=== PATIENT | male | born 1935 | race Caucasian/White ===

== ENCOUNTER → 2017-11-16 | Outpatient (CLI) | payer MEDICARE ==
--- NOTE | 2017-11-17 12:02 | ECHOF ---
Referral Reason:R01.1 Cardiac murmur MEASUREMENTS -------- HEIGHT: 170.2 cm WEIGHT: 81.6 kg BP: 151/73 RVIDd: 2.9 cm (< 3.3) IVSd: 1.4 cm (0.6 - 1.1) LVIDd: 4.3 cm (3.9 - 5.3) LVPWd: 1.4 cm (0.6 - 1.1) IVSs: 1.8 cm LVIDs: 3.0 cm LVPWs: 2.1 cm LA Diam: 4.0 cm (2.7 - 3.8) LAESV Index (A-L): 23.28 ml/m Ao Diam: 4.1 cm (2.0 - 3.7) AV Cusp: 2.1 cm (1.5 - 2.6) EPSS: 0.8 cm MV E Arias: 0.67 m/s MV DecT: 248 ms MV A Arias: 1.16 m/s MV E/A Ratio: 0.58 AV maxP.15 mmHg AV meanP.16 mmHg RAP: 5.00 mmHg RVSP: 19.96 mmHg MV EF SLOPE: 34.96 mm/s (70 - 150) MV EXCURSION: 1.59 cm (> 18.000) FINDINGS -------- Sinus rhythm. This was a technically good study. The left ventricular size is normal. There is moderate concentric left ventricular hypertrophy. O verall left ventricular systolic function is normal with, an EF between 60 - 65 %. The right ventricle is normal in size. Normal LA size by volume 22+/-6 ml/m2. The right atrium is normal in size. There is mild aortic valve sclerosis. There is mild aortic stenosis present. Peak/mean gradient a cross the Aortic Valve is 16.15mmHg / 8.16mmHg. The mitral valve leaflets are mildly thickened. Mild mitral annular calcification present. There is trace to mild mitral regurgitation. Mild tricuspid regurgitation present. Right ventricular systolic pressure is normal at < 35 mmHg. Trace/mild (physiologic) pulmonic regurgitation. The aortic root is dilated measuring 4.1cm. Normal inferior vena cava with normal inspiratory collapse consistent with estimated right atrial pre ssure of 5 mmHg. There is no pericardial effusion. CONCLUSIONS -------- 1. Sinus rhythm. 2. This was a technically good study. 3. The left ventricular size is normal. 4. There is moderate concentric left ventricular hypertrophy. 5. Overall left ventricular systolic function is normal with, an EF between 60 - 65 %. 6. The right ventricle is normal in size. 7. Normal LA size by volume 22+/-6 ml/m2. 8. The right atrium is normal in size. 9. There is mild aortic valve sclerosis. 10. There is mild aortic stenosis present. 11. Peak/mean gradient across the Aortic Valve is 16.15mmHg / 8.16mmHg. 12. The mitral valve leaflets are mildly thickened. 13. Mild mitral annular calcification present. 14. There is trace to mild mitral regurgitation. 15. Mild tricuspid regurgitation present. 16. Right ventricular systolic pressure is normal at < 35 mmHg. 17. Trace/mild (physiologic) pulmonic regurgitation. 18. The aortic root is dilated measuring 4.1cm. 19. Normal inferior vena cava with normal inspiratory collapse consistent with estimated right atrial pressure of 5 mmHg. 20. There is no pericardial effusion. BRAZING MACHINE TENDER: VICKI Cedeno
== END | disposition home or self-care (01) ==
LOC: RADECHMAIN 12:20
PROVIDERS: ATTEND Family Medicine
DX: I08.1 Rheumatic disorders of both mitral and tricuspid valves (principal); I77.819 Aortic ectasia, unspecified site
CPT/HCPCS: 93306

== ENCOUNTER → 2018-03-04 | Outpatient (CLI) | payer MEDICARE ==
[2018-03-04 08:57] LABS: ALT 73 U/L (21-72); AST 86 U/L (17-59); Albumin 4.1 g/dL (3.5-5.0); Alkaline Phosphatase 309 U/L (38-126); Anion Gap 9 mmol/L; Blood Urea Nitrogen 15 mg/dL (9-20); Calcium 9.6 mg/dL (8.4-10.2); Carbon Dioxide 27 mmol/L (22-30); Chloride 106 mmol/L (98-107); Glucose 129 mg/dL (74-99); Potassium 4.5 mmol/L (3.5-5.1); Sodium 142 mmol/L (137-145); Total Bilirubin 0.8 mg/dL (0.2-1.3); Total Protein 8.7 g/dL (6.3-8.2)
--- NOTE | 2018-03-04 10:20 | US ---
EXAMINATION TYPE: US liver DATE OF EXAM: 03/04/2018 COMPARISON: NONE CLINICAL HISTORY: R94.5 ABN RESULTS OF LIVER FUNCTION. EXAM MEASUREMENTS: Liver Length: 13.7 cm Gallbladder Wall: 0.2 cm CBD: 0.3 cm Right Kidney: 13.4 x 4.9 x 4.9 cm Elderly patient who had to sit somewhat upright for exam, large body habitus. Pancreas: partially obscured by overlying bowel, portions visualized wnl Liver: portions visualized are heterogenous, some limitations due to body habitus, and patient posit ioning Gallbladder: partially obscured by overlying bowel, portions visualized wnl Evidence for sonographic Sepulveda's sign: no CBD: wnl Right Kidney: 8.2 x 4.5 x 6.0cm cyst noted IMPRESSION: Exam is slightly limited secondary to patient body habitus. 1. Heterogeneity of the visualized hepatic parenchyma most commonly related to mild degree hepatic st eatosis. 2. 8.2 cm large simple appearing right renal cyst. 3. No evidence of cholelithiasis.
[2018-03-04 17:39] LABS: Protein, Total 7.5 g/dL (6.2-8.2)
[2018-03-04 19:20] LABS: Hepatitis C IgG Antibody Non-Reactive (Non-Reactive)
[2018-03-09 12:53] LABS: Albumin 3.54 g/dL (3.80-4.90); Gamma Globulin 2.04 g/dL (0.70-1.50)
== END | disposition home or self-care (01) ==
LOC: RADUSWWP 07:24
PROVIDERS: ATTEND Internal Medicine Gastroenterology
DX: K76.0 Fatty (change of) liver, not elsewhere classified (principal); N28.1 Cyst of kidney, acquired; E11.9 Type 2 diabetes mellitus without complications
CPT/HCPCS: 36415; 76705; 80053; 82103; 82390; 82728; 83516; 83540; 83550; 84165; 86038; 86803; 87340

== ENCOUNTER → 2018-07-11 | Outpatient (CLI) | payer MEDICARE ==
[2018-07-11 20:51] LABS: Albumin 4.1 g/dL (3.80-4.90); Albumin/Globulin Ratio 1.24 (1.60-3.17); Anion Gap 8.3 mmol/L (4.00-12.00); Calcium 9.5 mg/dL (8.7-10.3); Carbon Dioxide 26.7 mmol/L (21.6-31.8); Globulin 3.3 g/dL (1.6-3.3); Potassium 4.4 mmol/L (3.5-5.5); Total Bilirubin 0.5 mg/dL (0.2-1.2); Total Protein 7.4 g/dL (6.2-8.2)
== END ==
LOC: LABWHC1 12:08
PROVIDERS: ATTEND Internal Medicine Gastroenterology
DX: K74.3 Primary biliary cirrhosis (principal)
CPT/HCPCS: 36415; 80053

== ENCOUNTER → 2018-12-20 | Outpatient (CLI) | payer MEDICARE ==
[2018-12-20 20:26] LABS: African American GFR (CKD) 79.2 (60.0-200.0); Albumin/Globulin Ratio 1.18 (1.60-3.17); Globulin 3.4 g/dL (1.6-3.3); Potassium 4.3 mmol/L (3.5-5.5); Total Bilirubin 0.6 mg/dL (0.2-1.2); Total Protein 7.4 g/dL (6.2-8.2)
== END | disposition home or self-care (01) ==
LOC: LABWHC1 12:51
PROVIDERS: ATTEND Internal Medicine Gastroenterology
DX: K74.3 Primary biliary cirrhosis (principal)
CPT/HCPCS: 36415; 80053

== ENCOUNTER → 2019-06-28 | Outpatient (CLI) | payer MEDICARE ==
[2019-06-28 18:34] LABS: African American GFR (CKD) 93.7 (60.0-200.0); Albumin 4.1 g/dL (3.80-4.90); Albumin/Globulin Ratio 1.11 (1.60-3.17); Anion Gap 7.8 mmol/L (4.00-12.00); BUN/Creat Ratio 21.25 Ratio (12.00-20.00); Calcium 9.3 mg/dL (8.7-10.3); Carbon Dioxide 27.2 mmol/L (21.6-31.8); Globulin 3.7 g/dL (1.6-3.3); Non-African American GFR(CKD) 80.9 (60.0-200.0); Potassium 4.3 mmol/L (3.5-5.5); Total Bilirubin 0.7 mg/dL (0.3-1.2); Total Protein 7.8 g/dL (6.2-8.2)
== END | disposition home or self-care (01) ==
LOC: LABWHC1 11:15
PROVIDERS: ATTEND Internal Medicine Gastroenterology
DX: K74.3 Primary biliary cirrhosis (principal)
CPT/HCPCS: 36415; 80053

== ENCOUNTER → 2020-01-05 | Outpatient (CLI) | payer MEDICARE ==
[2020-01-05 14:01] LABS: Basophils % (A) 0 %; Eosinophils # (A) 0.2 k/uL (0-0.7); Eosinophils % (A) 4 %; HCT 40.8 % (39.0-53.0); Lymphocytes % (A) 50 %; MCH 29.9 pg (25.0-35.0); MCV 93.7 fL (80.0-100.0); Mean Platelet Volume 7.7; Monocytes # (A) 0.3 k/uL (0-1.0); Monocytes % (A) 7 %; Neutrophils # (A) 1.4 k/uL (1.3-7.7); Neutrophils % (A) 37 %; Platelet Count 155 k/uL (150-450); RBC 4.36 m/uL (4.30-5.90); RDW 13.5 % (11.5-15.5); WBC 3.9 k/uL (3.8-10.6)
[2020-01-05 21:14] LABS: African American GFR (CKD) 78.6 (60.0-200.0); Albumin 3.9 g/dL (3.80-4.90); Albumin/Globulin Ratio 1.05 (1.60-3.17); Anion Gap 6.9 mmol/L (4.00-12.00); Calcium 9.3 mg/dL (8.7-10.3); Carbon Dioxide 26.1 mmol/L (21.6-31.8); Globulin 3.7 g/dL (1.6-3.3); Non-African American GFR(CKD) 67.8 (60.0-200.0); Potassium 4.4 mmol/L (3.5-5.5); Total Bilirubin 0.6 mg/dL (0.3-1.2); Total Protein 7.6 g/dL (6.2-8.2)
[2020-01-05 22:37] LABS: Hemoglobin A1C 6.1 % (4.0-6.0)
== END | disposition home or self-care (01) ==
LOC: LABWHC1 11:49
PROVIDERS: ATTEND Internal Medicine Gastroenterology
DX: K74.3 Primary biliary cirrhosis (principal); E11.9 Type 2 diabetes mellitus without complications
CPT/HCPCS: 36415; 80053; 83036; 85025

== ENCOUNTER → 2020-08-19 | Outpatient (CLI) | payer MEDICARE ==
[2020-08-20 00:40] LABS: Basophils # (A) 0 X 10*3/uL (0.00-0.10); Basophils % (A) 0 %; Eosinophils # (A) 0.25 X 10*3/uL (0.04-0.35); Eosinophils % (A) 5.3 %; HCT 38.4 % (39.6-50.0); HGB 11.9 g/dL (13.0-17.0); Lymphocytes # (A) 2.51 X 10*3/uL (0.90-5.00); Lymphocytes % (A) 53.2 %; MCH 29.1 pg (27.0-32.0); MCV 93.9 fL (80.0-97.0); Monocytes % (A) 8.5 %; Neutrophils # (A) 1.55 X 10*3/uL (1.80-7.70); Neutrophils % (A) 32.8 %; Platelet Count 10 X 10*3/uL (140-440); RBC 4.09 X 10*6/uL (4.40-5.60); RDW 13.9 % (11.5-14.5); WBC 4.72 X 10*3/uL (4.50-10.00)
[2020-08-20 01:50] LABS: African American GFR (CKD) 78.1 (60.0-200.0); Albumin/Globulin Ratio 1.03 (1.60-3.17); Calcium 8.8 mg/dL (8.7-10.3); Globulin 3.9 g/dL (1.6-3.3); Non-African American GFR(CKD) 67.4 (60.0-200.0); Potassium 4.4 mmol/L (3.5-5.5); Total Bilirubin 0.6 mg/dL (0.3-1.2); Total Protein 7.9 g/dL (6.2-8.2)
== END | disposition home or self-care (01) ==
LOC: LABWHC1 14:24
PROVIDERS: ATTEND Internal Medicine Gastroenterology
DX: K74.3 Primary biliary cirrhosis (principal)
CPT/HCPCS: 36415; 80053; 85025

== ENCOUNTER → 2020-08-28 | Outpatient (CLI) | payer MEDICARE ==
[2020-08-28 17:58] LABS: Basophils % (A) 0 %; Eosinophils # (A) 0.2 k/uL (0-0.7); Eosinophils % (A) 5 %; HCT 41.5 % (39.0-53.0); Lymphocytes # (A) 2.4 k/uL (1.0-4.8); Lymphocytes % (A) 47 %; MCH 28.3 pg (25.0-35.0); MCHC 31.3 g/dL (31.0-37.0); MCV 90.4 fL (80.0-100.0); Monocytes # (A) 0.3 k/uL (0-1.0); Monocytes % (A) 5 %; Neutrophils # (A) 2.1 k/uL (1.3-7.7); Neutrophils % (A) 41 %; RBC 4.59 m/uL (4.30-5.90); RDW 14.1 % (11.5-15.5); WBC 5.1 k/uL (3.8-10.6)
[2020-08-28 18:07] LABS: ALT 32 U/L (4-49); AST 57 U/L (17-59); African American GFR (CKD) >90 (>60 ml/min/1.73 sqM); Albumin 4.5 g/dL (3.5-5.0); Alkaline Phosphatase 196 U/L (38-126); Anion Gap 8 mmol/L; Blood Urea Nitrogen 19 mg/dL (9-20); Calcium 9.4 mg/dL (8.4-10.2); Carbon Dioxide 26 mmol/L (22-30); Chloride 104 mmol/L (98-107); Glucose 92 mg/dL (74-99); Non-African American GFR(CKD) 80 (>60 ml/min/1.73 sqM); Potassium 3.8 mmol/L (3.5-5.1); Sodium 138 mmol/L (137-145); Total Bilirubin 0.7 mg/dL (0.2-1.3); Total Protein 8.6 g/dL (6.3-8.2)
[2020-08-28 18:32] LABS: Platelet Count 9 k/uL (150-450)
== END | disposition home or self-care (01) ==
LOC: EC 17:01
PROVIDERS: ATTEND Internal Medicine Gastroenterology
DX: K74.3 Primary biliary cirrhosis (principal); D69.6 Thrombocytopenia, unspecified
CPT/HCPCS: 36415; 80053; 85025

== ENCOUNTER 2020-10-29 18:43 | Emergency (ER) | payer MEDICARE ==
[2020-10-29 18:52] VITALS: RESP 18
[2020-10-29 19:41] LABS: Basophils % (A) 0 %; Eosinophils # (A) 0.1 k/uL (0-0.7); Eosinophils % (A) 4 %; HCT 34.6 % (39.0-53.0); HGB 11.6 gm/dL (13.0-17.5); Lymphocytes # (A) 1.5 k/uL (1.0-4.8); Lymphocytes % (A) 37 %; MCH 29.5 pg (25.0-35.0); MCHC 33.4 g/dL (31.0-37.0); MCV 88.2 fL (80.0-100.0); Mean Platelet Volume 8.9; Monocytes # (A) 0.2 k/uL (0-1.0); Monocytes % (A) 6 %; Neutrophils % (A) 50 %; RBC 3.92 m/uL (4.30-5.90); RDW 14.3 % (11.5-15.5)
[2020-10-29 19:43] LABS: Lactic Acid, Venous 1.2 mmol/L (0.7-2.0)
[2020-10-29 19:47] LABS: ALT 28 U/L (4-49); AST 57 U/L (17-59); African American GFR (CKD) >90 (>60 ml/min/1.73 sqM); Albumin 3.6 g/dL (3.5-5.0); Alkaline Phosphatase 193 U/L (38-126); Anion Gap 6 mmol/L; Blood Urea Nitrogen 19 mg/dL (9-20); Calcium 8.6 mg/dL (8.4-10.2); Carbon Dioxide 26 mmol/L (22-30); Chloride 103 mmol/L (98-107); Glucose 136 mg/dL (74-99); Non-African American GFR(CKD) 86 (>60 ml/min/1.73 sqM); Sodium 135 mmol/L (137-145); Total Protein 7.3 g/dL (6.3-8.2)
[2020-10-29 19:50] LABS: Potassium 3.7 mmol/L (3.5-5.1)
[2020-10-29 19:53] LABS: Partial Thromboplastin Time 22.2 sec (22.0-30.0); Prothrombin Time 10.6 sec (9.0-12.0)
[2020-10-29 19:57] LABS: Platelet Count 3 k/uL (150-450)
--- NOTE | 2020-10-29 20:11 | XR ---
EXAMINATION TYPE: XR chest 2V DATE OF EXAM: 10/29/2020 COMPARISON: NONE HISTORY: Altered mental status TECHNIQUE: 2 views FINDINGS: Heart and mediastinum are normal. Lungs are clear. Diaphragm is normal. Bony thorax is inta ct. There are chest leads. IMPRESSION: Normal chest.
--- NOTE | 2020-10-29 20:32 | CT ---
EXAMINATION TYPE: CT brain wo con for TPA DATE OF EXAM: 10/29/2020 COMPARISON: None HISTORY: Altered mental status. CT DLP: 1220.8 mGycm Automated exposure control for dose reduction was used. There is high attenuation at the left parietal convexity relate to acute subdural hematoma. This niesha ures up to 8 mm in thickness. There is no mass effect. The calvarium is intact. There is no midline s hift. Ventricles have normal size. There is cerebral atrophy. IMPRESSION: Acute left parietal subdural hemorrhage. No significant mass effect.
[2020-10-29] MEDS ORDERED: levETIRAcetam IV 1,500 MG in SALINE 1 100ML.BAG IVPB STA (20:54)
--- NOTE | 2020-10-29 20:55 | ED ---
General Adult HPI - General Chief complaint: Neuro Symptoms/Deficit Stated complaint: Possible Stroke Time Seen by Provider: 10/29/20 19:01 Source: patient, EMS, RN notes reviewed, old records reviewed Mode of arrival: EMS Limitations: altered mental status, physical limitation - History of Present Illness Initial comments: Patient is an 85-year-old male with past medical history remarkable for thrombocytopenia who presents to the emergency department with family members over concern for altered mental status. Last known well for the patient was ap proximately one week ago when he last talked with family members on the phone. He lives by himself. Patient walked to a nearby restaurant where he typically eats on a weekly basis today was acting confused. Family is uncertain if he presented to this restaurant yesterday or earlier this week. Last known well per them is still last week. Patient currently denies any chest pain, shortness of breath, abdominal pain. Denies any nausea or vomiting. Denies any headache. Denies any weakness or numbness. He has no other acute complaint at this time. He does seem somewhat confused. - Related Data Home Medications Medication Instructions Recorded Confirmed Aspirin EC [Ecotrin Low Dose] 81 mg PO DAILY 10/29/20 10/29/20 Calcium Carbonate/Vitamin D3 1 cap PO DAILY 10/29/20 10/29/20 [Calcium 600 mg-D3 10 Mcg (400 Iu)] Latanoprost/Pf [Latanoprost 0.005% 1 drop BOTH EYES HS 10/29/20 10/29/20 Eye Drop] Lisinopril [Zestril] 10 mg PO DAILY 10/29/20 10/29/20 Terazosin HCl [Hytrin] 10 mg PO HS 10/29/20 10/29/20 Timolol 0.5% Ophth Soln [Timoptic 1 - 2 drop BOTH EYES DAILY 10/29/20 10/29/20 0.5% Ophth Soln] Vitamin E (Dl,Tocopheryl Acet) 400 unit PO DAILY 10/29/20 10/29/20 [Vitamin E (400 Iu = 180 mg)] busPIRone HCl [Buspar] 5 mg PO BID 10/29/20 10/29/20 lisinopriL [Zestril] 5 mg PO DAILY 10/29/20 10/29/20 metFORMIN HCL [Glucophage] 500 mg PO BID 10/29/20 10/29/20 ursodioL [Ursodiol] 300 mg PO TID 10/29/20 10/29/20 Allergies Allergy/AdvReac Type Severity Reaction Status Date / Time No Known Allergies Allergy Verified 10/29/20 20:45 Review of Systems ROS Statement: Those systems with pertinent positive or pertinent negative responses have been documented in the HPI. Review of Systems: CONST: Denies fever EYES: Denies blurry vision ENT: Denies nasal congestion C/V: Denies Chest pain RESP: Denies shortness of breath GI: Denies abdominal pain : Denies dysuria SKIN: Denies rash. MSK: Denies joint pain. NEURO: Denies headache ROS Other: All systems not noted in ROS Statement are negative. Past Medical History Past Medical History: Unable to Obtain History of Any Multi-Drug Resistant Organisms: None Reported Past Surgical History: Unable to Obtain Past Psychological History: No Psychological Hx Reported Smoking Status: Never smoker Past Alcohol Use History: None Reported Past Drug Use History: None Reported General Exam - General Exam Comments Initial Comments: General: Appears in no acute distress. HEAD: Normal with no signs of head trauma. No Jj sign. No signs of skull fracture. No raccoon eyes. No step-offs or deformities of the skull. EYES: PERRLA, EOMI, conjunctiva normal, no discharge. Pupils are 3 mm and equal bilaterally. ENT: Hearing grossly intact, normal oropharynx. Patient has slight right-sided flattening of the right nasal labial fold. RESPIRATORY: Clear breath sounds bilaterally. No wheezes, rales, or rhonchi. C/V: Regular rate and rhythm. S1 and S2 auscultated, no edema, peripheral pulses 2+ and intact throughout ABD: Abd is soft, nontender, nondistended EXT: Normal range of motion, no obvious deformity SKIN: No rashes or lesions observed on exposed skin. NEURO: Alert and oriented 2. Baseline is alert and oriented 3-4. GCS is 15. NIH stroke scale is 4, 1 each for bilateral lower extremity drift in each leg, 1 for slight right-sided facial droop, and 1 for inability to tell me the month. Limitations: altered mental status, physical limitation Course Vital Signs 10/29/20 18:46 Temperature 98.0 F Pulse Rate 79 Respiratory 18 Rate Blood Pressure 160/87 O2 Sat by Pulse 96 Oximetry Medical Decision Making - Medical Decision Making Based on the patient's presentation and physical exam, there is concern for acute neurovascular accident at this time. There is an unknown last known well, as the patient was last known to be normal proximal leg 1 week ago. There are uncertain when symptoms started. Therefore patient is not a TPA candidate. Patient is otherwise stable. Stroke pager was not activated due to these reasons. He was treated as a wake-up stroke. Generalized altered mental status labs will be obtained otherwise. EKG and chest x-ray will also be obtained. Patient's family members are in agreement with the plan. He is not on blood thinners. Patient's EKG revealed no signs of acute ischemia. Chest x-ray showed no acute cardio primary process. Patient's laboratory studies are remarkable for acute on chronic thrombocytopenia, with platelet count of 3. Patient also has a normo cytic anemia with a hemoglobin of 11.6. Alkaline phosphatase is incidentally elevated to 193. Troponin is negative. Ammonia is negative. The remainder of his laboratory studies unremarkable. Patient's CT imaging revealed a acute left parietal subdural hemorrhage. There is no significant mass effect. On reevaluation, patient's neurological exam is unchanged. I did discuss with the patient's family members the results of the CT imaging. The patient will require transfer to a higher level hospital with neurosurgery vice president of contracts. Spoke with the neuro auxiliary powerplant operator vice president of contracts, , who was in agreement with the plan. He requested that I started dose of IV Keppra here in the department, which was provided. Due to the patient's chronic thrombocytopena, we will transfuse platelets. I did contact our blood bank to have platelets available for him. Therefore patient will be transfused one unit of platelets. He requires transfer to higher level care Center with neurosurgery. Patient be transferred to [facility]. I spoke with the accepting ER physician, Dr. Garcia who accepted the patient. Patient will be transferred via ALS ambulance. Patient was transferred in serious condition. Throughout his stay in the emergency department, patient's vital signs remained stable. - Lab Data Result diagrams: 10/29/20 19:26 10/29/20 19:26 Lab Results 10/29/20 10/29/20 10/29/20 Range/Units 19:26 19:26 19:26 WBC 4.0 (3.8-10.6) k/uL RBC 3.92 L (4.30-5.90) m/uL Hgb 11.6 L (13.0-17.5) gm/dL Hct 34.6 L (39.0-53.0) % MCV 88.2 (80.0-100.0) fL MCH 29.5 (25.0-35.0) pg MCHC 33.4 (31.0-37.0) g/dL RDW 14.3 (11.5-15.5) % Plt Count 3 L* D (150-450) k/uL MPV 8.9 Neutrophils % 50 % Lymphocytes % 37 % Monocytes % 6 % Eosinophils % 4 % Basophils % 0 % Neutrophils # 2.0 (1.3-7.7) k/uL Lymphocytes # 1.5 (1.0-4.8) k/uL Monocytes # 0.2 (0-1.0) k/uL Eosinophils # 0.1 (0-0.7) k/uL Basophils # 0.0 (0-0.2) k/uL PT 10.6 (9.0-12.0) sec INR 1.0 (<1.2) APTT 22.2 (22.0-30.0) sec Sodium 135 L (137-145) mmol/L Potassium 3.7 (3.5-5.1) mmol/L Chloride 103 (98-107) mmol/L Carbon Dioxide 26 (22-30) mmol/L Anion Gap 6 mmol/L BUN 19 (9-20) mg/dL Creatinine 0.69 (0.66-1.25) mg/dL Est GFR (CKD-EPI)AfAm >90 (>60 ml/min/1.73 sqM) Est GFR (CKD-EPI)NonAf 86 (>60 ml/min/1.73 sqM) Glucose 136 H (74-99) mg/dL Plasma Lactic Acid Tera (0.7-2.0) mmol/L Calcium 8.6 (8.4-10.2) mg/dL Total Bilirubin 1.0 (0.2-1.3) mg/dL AST 57 (17-59) U/L ALT 28 (4-49) U/L Alkaline Phosphatase 193 H (38-126) U/L Ammonia (<30) umol/L Troponin I (0.000-0.034) ng/mL Total Protein 7.3 (6.3-8.2) g/dL Albumin 3.6 (3.5-5.0) g/dL 10/29/20 10/29/20 Range/Units 19:26 19:26 WBC (3.8-10.6) k/uL RBC (4.30-5.90) m/uL Hgb (13.0-17.5) gm/dL Hct (39.0-53.0) % MCV (80.0-100.0) fL MCH (25.0-35.0) pg MCHC (31.0-37.0) g/dL RDW (11.5-15.5) % Plt Count (150-450) k/uL MPV Neutrophils % % Lymphocytes % % Monocytes % % Eosinophils % % Basophils % % Neutrophils # (1.3-7.7) k/uL Lymphocytes # (1.0-4.8) k/uL Monocytes # (0-1.0) k/uL Eosinophils # (0-0.7) k/uL Basophils # (0-0.2) k/uL PT (9.0-12.0) sec INR (<1.2) APTT (22.0-30.0) sec Sodium (137-145) mmol/L Potassium (3.5-5.1) mmol/L Chloride (98-107) mmol/L Carbon Dioxide (22-30) mmol/L Anion Gap mmol/L BUN (9-20) mg/dL Creatinine (0.66-1.25) mg/dL Est GFR (CKD-EPI)AfAm (>60 ml/min/1.73 sqM) Est GFR (CKD-EPI)NonAf (>60 ml/min/1.73 sqM) Glucose (74-99) mg/dL Plasma Lactic Acid Tera 1.2 (0.7-2.0) mmol/L Calcium (8.4-10.2) mg/dL Total Bilirubin (0.2-1.3) mg/dL AST (17-59) U/L ALT (4-49) U/L Alkaline Phosphatase (38-126) U/L Ammonia <9 (<30) umol/L Troponin I <0.012 (0.000-0.034) ng/mL Total Protein (6.3-8.2) g/dL Albumin (3.5-5.0) g/dL - EKG Data -: EKG Interpreted by Me EKG Comments: 12-lead Electrocardiogram Interpretation Note EKG was reviewed and interpreted by myself. 12-lead ECG performed at 1918 is interpreted by me as revealing normal sinus rhythm with first-degree AV block. At a rate of 75 beats per minute. Left axis deviation. NH interval is 234 seconds, QRS duration is 160 ms, QTc is 455 ms.. There were no ST or T wave abnormalities to suggest myocardial ischemia or injury. R wave progression across the precordium was satisfactory. By my interpretation this EKG is non- diagnostic for acute ischemia. Disposition Clinical Impression: Cerebrovascular accident (CVA), Subdural hemorrhage, Altered mental status, Normocytic anemia, Thrombocytopenia, Transfusion of platelets during current hospitalization Disposition: OTHER INSTITUTION NOT DEFINED Condition: Serious Referrals: Kiko Campos DO [Primary Care Provider] - 1-2 days - Out of Hospital Transfer - Req. Specs Out of Hospital Transfer - Requested Specifics: Other Emergency Center (Transferred to [facility] for higher level of care with Neurosurgery.)
--- NOTE | 2020-10-29 20:55 | CT ---
EXAMINATION TYPE: CT angio head neck DATE OF EXAM: 10/29/2020 COMPARISON: None HISTORY: Altered mental status. CT DLP: 564.9 mGycm Automated exposure control for dose reduction was used. CONTRAST: Performed with IV Contrast, patient injected with 65ml mL of Isovue 370. Images obtained from the aortic arch to the vertex of the brain with IV contrast. There are 3-D post processed images. There is normal branching pattern of the great vessels on the aortic arch. There is bilateral arteria l flow in the subclavian arteries. There is arterial flow in the common internal and external carotid arteries bilaterally. There is minimal plaque formation at the carotid artery bifurcations. Lumen na rrowing is approximately 20% on the right side in 10% on the left side. There is arterial flow in bot h vertebral arteries. There is arterial flow in the vertebrobasilar artery system. There is no evidence of carotid or verte bral artery aneurysm or dissection. There is contrast opacification of both jugular veins. There is arterial flow in the anterior middle and posterior cerebral arteries. There is no mass effec t. I see no evidence of aneurysm or neovascularity. There is normal enhancement of the venous sinuses . Small left side subdural hematoma noted. I see no evidence of intracranial arterial stenosis. IMPRESSION: Mild plaque at the carotid artery bifurcations. No evidence of hemodynamic stenosis. No intracranial angiographic abnormality. Left parietal small subdural hematoma noted.
[2020-10-29 23:09] VITALS: BP 148/73; PULSE 81; TEMP 98.6
== END 2020-10-29 23:15 | disposition other institution (70) ==
LOC: EC 18:43
DX: I63.9 Cerebral infarction, unspecified (principal); I62.00 Nontraumatic subdural hemorrhage, unspecified; D64.9 Anemia, unspecified; D69.6 Thrombocytopenia, unspecified; Z79.82 Long term (current) use of aspirin; Z79.84 Long term (current) use of oral hypoglycemic drugs; Z79.899 Other long term (current) drug therapy
CPT/HCPCS: 36415; 93005; 86900; 86901; 80053; 82140; 83605; 84484; 85025; 85610; 85730; 86850; 87040; 71046; 70496; 70450; 70498; 99285; 96374; P9073; J1953; Q9967